=== PATIENT | female | born 1985 | race Caucasian/White ===

== ENCOUNTER 2017-07-12 14:09 | Emergency (ER) | payer BC ==
[2017-07-12 15:51] VITALS: BP 119/60
--- NOTE | 2017-07-13 12:35 | UC ---
Skin Complaint HPI - HPI Summary HPI Summary: Pt is a 32 y.o female who presents to the for a pruritic rash to chest and under breast x several days. Patient started under her breasts several days ago and spread to chest. It is pruritic in nature. She does not recall any change in detergents, soaps, lotions, foods, exposures, etc. She does note that she currently has a vaginal yeast infection which she gets periodically. She has been using [id number] topical creams without relief. She has no significant past medical history. Symptoms are mild in [place]. No current modifying factors. - History of Current Complaint Chief Complaint: Ras Time Seen by Provider: 07/12/17 15:48 Stated Complaint: ITCHY RASH Hx Obtained From: Patient Hx Last Menstrual Period: [id number] Pain Intensity: 0 Pain Scale Used: 0-10 Numeric - Allergy/Home Medications Allergies/Adverse Reactions: Allergies Allergy/AdvReac Type Severity Reaction Status Date / Time bran Allergy Stomach Verified 07/12/17 15:52 Cramps gluten Allergy Stomach Verified 07/12/17 15:52 Cramps Home Medications: Home Medications Nystatin TOP POWDER* 1 applic TOPICAL BID 07/12/17 [History Confirmed 07/12/17] Review of Systems Skin: Rash Is Patient Immunocompromised?: No All Other Systems Reviewed And Are Negative: Yes PMH/Surg Hx/FS Hx/Imm Hx Previously Healthy: Yes - Surgical History Surgical History: Yes Surgery Procedure, Year, and Place: 2012. D & C - Family History Known Family History: Positive: None - Social History Occupation: Employed Full-time Lives: With Family Alcohol Use: Rare Substance Use Type: None Smoking Status (MU): Former Smoker Type: Cigarettes Household Exposure Type: Cigarettes - Immunization History Most Recent Influenza Vaccination: no Physical Exam Triage Information Reviewed: Yes Appearance: Well-Appearing - Patient sitting in bed in no acute distress. Pleasant. Vital Signs: Initial Vital Signs Temp 98.6 F 07/12/17 15:45 Pulse 63 07/12/17 15:45 Resp 16 07/12/17 15:45 BP 119/60 07/12/17 15:45 Pulse Ox 100 07/12/17 15:45 Eyes: Positive: Conjunctiva Clear Neck: Positive: Supple Neurological Exam: Normal Psychological Exam: Normal Skin: Positive: Other - Noted on the bilateral breasts there is a erythematous, excoriated rash extending to the chest. No [place], blisters, induration or fluctuance. Course/Dx - Course Course Of Treatment: Patient presenting with pruritic rash. She is afebrile with stable vital signs. She is well-appearing. Suspect possible tinea infection versus contact dermatitis. Given patient's history of vaginal infection will treat with Diflucan and clotrimazole cream. Advised patient to keep skin dry. To follow-up with family doctor in 2-3 days if rash is not improving with medications. To return to urgent care for go to ER if symptoms change or worsen. Patient understands and agrees with plan. - Differential Diagnoses - Skin Complaint Differential Diagnoses: Drug Rash, Eczema, Poison [place], Scabies, Tinea, Urticaria - Diagnoses Provider Diagnoses: Tenia corporis Discharge - Sign-Out/Discharge Documenting (check all that apply): Discharge/Admit/Transfer - Discharge Plan Condition: Good Disposition: HOME Prescriptions: Clotrimazole 1% CREAM* [Clotrimazole 1%*] 1 applic TOPICAL BID #60 tube Fluconazole 150 MG (NF) [Diflucan 150 mg (NF)] 150 mg PO ONCE #2 tab Patient Education Materials: Skin Yeast Infection (ED) Referrals: Zarina Gray MD [Primary Care Provider] - Additional Instructions: Call your family doctor on Friday for an appointment Use medication as directed Keep skin clean and dry Return to or go to ER if symptoms change or worsen - Billing Disposition and Condition Condition: GOOD Disposition: HOME
== END 2017-07-12 16:34 | disposition home or self-care (01) ==
LOC: UCCORT 14:09
DX: B35.4 Tinea corporis (principal); Z87.891 Personal history of nicotine dependence
CPT/HCPCS: 99212; G0463